=== PATIENT | male | born 1980 | race Caucasian/White ===

== ENCOUNTER 2022-03-28 15:42 | Emergency (ER) | payer MEDICAID ==
[~2022-03-28] VITALS: Ht 185.4 cm; Wt 83.9 kg
--- NOTE | 2022-03-28 16:00 | NUR ---
BIBS C/O NAUSEA, VOMITING AND DIARRHEA, LOST SENSE TASTE/SMELL X 3 DAYS UNABLE TO TOLERATE FOOD/ORAL FLUIDS.
[2022-03-28] MEDS ORDERED: ONDANSETRON HCL/PF 4 MG/2 ML VIAL ONE (17:30)
[2022-03-28] MEDS ORDERED: MORPHINE SULFATE INJ 2 MG/ML DISP.SYRIN IV ONE (17:30)
[2022-03-28] MEDS ORDERED: IV NS 0.9% 1,000 ML BAG IV ONE (17:30)
[2022-03-28] MEDS ORDERED: MORPHINE SULFATE INJ 4 MG/ML DISP.SYRIN ONE (17:30)
[2022-03-28] MEDS ORDERED: ONDANSETRON HCL/PF 4 MG/2 ML VIAL IVP ONE (17:30)
--- NOTE | 2022-03-28 18:16 | NUR ---
PT STILL IN THE BATHROOM, STATES THAT HE'S HAVING DIARRHEA AND STOMACH UPSET
--- NOTE | 2022-03-28 19:06 | NUR ---
WEIGHT GUESSER AT BEDSIDE
[2022-03-28] MEDS ORDERED: KETOROLAC TROMETHAMINE INJ 30 MG/ML VIAL ONE (20:28)
[2022-03-28] MEDS ORDERED: KETOROLAC TROMETHAMINE INJ 30 MG/ML VIAL IV ONE (20:30)
[2022-03-28 20:43] LABS: BASOPHILS % (AUTO) 0.1 % (0.0-2.0); EOSINOPHILS % (AUTO) 0.1 % (0.0-6.0); HEMATOCRIT 48 % (39-51); HEMOGLOBIN 15.8 g/dL (13.5-17.5); LYMPHOCYTES # (AUTO) 1.1 K/uL (0.8-4.8); LYMPHOCYTES % (AUTO) 11.1 % (20.0-44.0); MEAN CORPUSCULAR HGB CONC 33 g/dl (31.0-36.0); MEAN CORPUSCULAR VOLUME 83 fL (80-96); MONOCYTES # (AUTO) 0.8 K/uL (0.1-1.30); MONOCYTES % (AUTO) 8.5 % (2.0-12.0); NEUTROPHILS # (AUTO) 7.6 K/uL (1.8-8.9); NEUTROPHILS % (AUTO) 80.2 % (43.0-81.0); PLATELET COUNT (AUTO) 197 K/uL (150-450); RED BLOOD CELL COUNT(AUTO) 5.77 MIL/uL (4.5-6.0); WHITE BLOOD COUNT (AUTO) 9.5 K/uL (4.3-11.0)
[2022-03-28 20:50] LABS: ALBUMIN 4.4 g/dL (3.4-5.0); BILIRUBIN,DIRECT 0.2 mg/dL (0.0-0.2); BILIRUBIN,TOTAL 1.3 mg/dL (0.2-1.0); CREATININE 1.1 mg/dL (0.6-1.3); POTASSIUM 3.4 mmol/L (3.5-5.1); TOTAL PROTEIN, SERUM 8.1 g/dL (6.4-8.2)
[2022-03-28] MEDS ORDERED: IBUP-1953 PO (21:01)
[2022-03-28] MEDS ORDERED: HYDR-3972 PO (21:01)
[2022-03-28 21:23] VITALS: BP 133/90
--- NOTE | 2022-03-28 21:23 | NUR ---
Patient discharged to home in stable condition. Written and verbal after care instructions given. Patient verbalizes understanding of instruction.
== END 2022-03-28 21:24 | disposition home or self-care (01) ==
LOC: ER 15:47
DX: U07.1 COVID-19 (principal); R19.7 Diarrhea, unspecified; R91.8 Other nonspecific abnormal finding of lung field; F17.210 Nicotine dependence, cigarettes, uncomplicated; R03.0 Elevated blood-pressure reading, without diagnosis of hypertension
CPT/HCPCS: 99285; 74176; 96374; 71045; 96375; 96361; 87426; 85025; 80048; 83690; 80076; 36415; J2270; J1885; J2405; J7030; C9803

== ENCOUNTER 2022-11-04 13:29 | Emergency (ER) | payer MEDICAID ==
[~2022-11-04] VITALS: Ht 185.4 cm; Wt 72.6 kg
[~2022-11-04 13:29] MED LIST: HYDR-3972 PO; IBUP-1953 PO
--- NOTE | 2022-11-04 13:30 | NUR ---
BIBS FOR CONSTIPATION X 3 WEEKS. THIS TYPE OF CONSTIPATION HAS OCCURRED ONLY ONCE BEFORE. A/O X 3, TOLERATING WELL ON ROOM AIR, WILL CONTINUE TO MONITOR.
[2022-11-04] MEDS ORDERED: LINA72CA PO (14:02)
[2022-11-04] MEDS ORDERED: DOCU-141 PO (14:02)
--- NOTE | 2022-11-04 14:18 | NUR ---
Patient discharged to home in stable condition. Written and verbal after care instructions given. Patient verbalizes understanding of instruction.
[2022-11-04 14:19] VITALS: BP 112/47; TEMP 98.1; O2SAT 100
== END 2022-11-04 14:19 | disposition home or self-care (01) ==
LOC: ER 13:34
DX: K59.00 Constipation, unspecified (principal); F17.200 Nicotine dependence, unspecified, uncomplicated; Z60.2 Problems related to living alone; Z79.899 Other long term (current) drug therapy
CPT/HCPCS: 74018

== ENCOUNTER 2023-07-05 20:38 | Emergency (ER) | payer MEDICAID, OTHER ==
[~2023-07-05] VITALS: Ht 185.4 cm; Wt 81.6 kg
[~2023-07-05 20:38] MED LIST changes: +DOCU-141 PO; +LINA72CA PO
[2023-07-05] MEDS ORDERED: KETOROLAC TROMETHAMINE 15 MG/ML VIAL ONE (22:06)
[2023-07-05] MEDS: KETOROLAC TROMETHAMINE 15 MG/ML VIAL IV ONE (22:06)
[2023-07-05] MEDS: IV NS 0.9% 1,000 ML BAG IV ONE (22:06)
[2023-07-05 22:26] LABS: CREATININE 0.8 mg/dL (0.6-1.3); POTASSIUM 3.6 mmol/L (3.5-5.1)
[2023-07-05 22:32] LABS: ALBUMIN 3.8 g/dL (3.4-5.0); BILIRUBIN,DIRECT 0.3 mg/dL (0.0-0.2); BILIRUBIN,TOTAL 1.1 mg/dL (0.2-1.0); TOTAL PROTEIN, SERUM 7.7 g/dL (6.4-8.2)
[2023-07-05 22:33] LABS: BASOPHILS % (AUTO) 0.3 % (0.0-2.0); EOSINOPHILS # (AUTO) 0.2 K/uL (0.0-0.7); EOSINOPHILS % (AUTO) 3.2 % (0.0-6.0); HEMATOCRIT 39 % (39-51); HEMOGLOBIN 13.5 g/dL (13.5-17.5); LYMPHOCYTES # (AUTO) 2.2 K/uL (0.8-4.8); LYMPHOCYTES % (AUTO) 32.3 % (20.0-44.0); MEAN CORPUSCULAR HEMOGLOBIN 27 PG (26.0-33.0); MEAN CORPUSCULAR HGB CONC 34 g/dl (31.0-36.0); MEAN CORPUSCULAR VOLUME 79 fL (80-96); MONOCYTES # (AUTO) 0.5 K/uL (0.1-1.30); MONOCYTES % (AUTO) 7.1 % (2.0-12.0); NEUTROPHILS % (AUTO) 57.1 % (43.0-81.0); PLATELET COUNT (AUTO) 214 K/uL (150-450); RED BLOOD CELL COUNT(AUTO) 4.99 MIL/uL (4.5-6.0); WHITE BLOOD COUNT (AUTO) 6.9 K/uL (4.3-11.0)
[2023-07-05 22:37] LABS: APPEARANCE,URINE CLEAR (CLEAR); BILIRUBIN,URINE 1+ (NEGATIVE); COLOR,URINE YELLOW (YELLOW); KETONES,URINE NEGATIVE (NEGATIVE); LEUKOCYTE ESTERASE ,URINE NEGATIVE (NEGATIVE); NITRITE, URINE NEGATIVE (NEGATIVE); PROTEIN,URINE NEGATIVE (NEGATIVE); UGLUCOSE NEGATIVE (NEGATIVE)
[2023-07-05 22:39] LABS: BLOOD, URINE NEGATIVE Ery/uL (NEGATIVE)
[2023-07-06] MEDS ORDERED: IBUP-1957 PO (00:21)
[2023-07-06] MEDS ORDERED: ACET-2605 PO (00:21)
[2023-07-06 00:32] VITALS: BP 109/69; TEMP 98.9; O2SAT 99
== END 2023-07-06 00:33 | disposition home or self-care (01) ==
LOC: EDUNIT# 20:38 → ER 20:45
DX: R10.9 Unspecified abdominal pain (principal); F17.200 Nicotine dependence, unspecified, uncomplicated; Z79.899 Other long term (current) drug therapy; Z60.2 Problems related to living alone
CPT/HCPCS: 99285; 74176; 96374; 96361; 85025; 80048; 83690; 80076; 81003; 36415; J7030; J1885

== ENCOUNTER 2023-09-12 09:44 | Emergency (ER) | payer OTHER ==
[~2023-09-12] VITALS: Ht 185.4 cm; Wt 81.6 kg
[~2023-09-12 09:44] MED LIST changes: +ACET-2605 PO; +IBUP-1957 PO
[2023-09-12 10:55] LABS: BASOPHILS % (AUTO) 0.3 % (0.0-2.0); EOSINOPHILS # (AUTO) 0.1 K/uL (0.0-0.7); EOSINOPHILS % (AUTO) 1.5 % (0.0-6.0); HEMATOCRIT 40 % (39-51); HEMOGLOBIN 13.4 g/dL (13.5-17.5); LYMPHOCYTES # (AUTO) 0.9 K/uL (0.8-4.8); LYMPHOCYTES % (AUTO) 12.9 % (20.0-44.0); MEAN CORPUSCULAR HEMOGLOBIN 26 PG (26.0-33.0); MEAN CORPUSCULAR HGB CONC 34 g/dl (31.0-36.0); MEAN CORPUSCULAR VOLUME 78 fL (80-96); MONOCYTES # (AUTO) 0.4 K/uL (0.1-1.30); MONOCYTES % (AUTO) 5.9 % (2.0-12.0); NEUTROPHILS # (AUTO) 5.8 K/uL (1.8-8.9); NEUTROPHILS % (AUTO) 79.4 % (43.0-81.0); PLATELET COUNT (AUTO) 191 K/uL (150-450); RED BLOOD CELL COUNT(AUTO) 5.09 MIL/uL (4.5-6.0); RED CELL DISTRIBUTION WIDTH 13.5 % (11.5-15.0); WHITE BLOOD COUNT (AUTO) 7.3 K/uL (4.3-11.0)
[2023-09-12 11:00] LABS: CALCIUM, SERUM 9.2 mg/dL (8.5-10.1); CREATININE 0.8 mg/dL (0.6-1.3); POTASSIUM 4.3 mmol/L (3.5-5.1)
[2023-09-12 11:06] LABS: ALBUMIN 3.8 g/dL (3.4-5.0); BILIRUBIN,DIRECT 0.2 mg/dL (0.0-0.2); BILIRUBIN,TOTAL 1.1 mg/dL (0.2-1.0); TOTAL PROTEIN, SERUM 7.9 g/dL (6.4-8.2)
[2023-09-12] MEDS ORDERED: DICY10CA37 PO (12:06)
[2023-09-12 12:22] VITALS: BP 121/83; TEMP 98; O2SAT 99
[2023-09-12] MEDS ORDERED: HYDROCODONE/APAP 5/325MG TABLET PO ONE (12:30)
[2023-09-12] MEDS ORDERED: DICYCLOMINE HCL 10 MG CAPSULE PO ONE (12:30)
[2023-09-12] MEDS ORDERED: ONDANSETRON HCL 4 MG/5 ML SOLUTION PO ONE (12:30)
== END 2023-09-12 12:24 | disposition home or self-care (01) ==
LOC: ER 10:37
DX: R10.9 Unspecified abdominal pain (principal); K59.00 Constipation, unspecified; F17.200 Nicotine dependence, unspecified, uncomplicated; Z79.899 Other long term (current) drug therapy; Z60.2 Problems related to living alone
CPT/HCPCS: 36415; 80048-TC; 80076-TC; 83690-TC; 85025-TC

== ENCOUNTER 2024-05-15 13:46 | Emergency (ER) | payer OTHER ==
[~2024-05-15] VITALS: Ht 185.4 cm; Wt 77.1 kg
[~2024-05-15 13:46] MED LIST changes: +DICY10CA37 PO
[2024-05-15] MEDS ORDERED: DOXY100C2 PO (15:47)
[2024-05-15] MEDS ORDERED: CEPH-570 PO (15:47)
[2024-05-15 15:57] VITALS: BP 126/75; TEMP 98; O2SAT 99
== END 2024-05-15 15:57 | disposition home or self-care (01) ==
LOC: ER 14:08
DX: L03.114 Cellulitis of left upper limb (principal); F17.210 Nicotine dependence, cigarettes, uncomplicated

== ENCOUNTER 2025-04-01 14:04 | Emergency (ER) | payer OTHER ==
[~2025-04-01] VITALS: Ht 188 cm; Wt 81.6 kg
[~2025-04-01 14:04] MED LIST changes: +CEPH-570 PO; +DOXY100C2 PO
[2025-04-01 14:13] VITALS: TEMP 98
[2025-04-01] MEDS: IV NS 0.9% 1,000 ML BAG IV ONE (15:05)
[2025-04-01] MEDS: CEFEPIME 1 GM in IV D5W 50 ML IV ONE (15:10)
[2025-04-01] MEDS ORDERED: IOHEXOL-300 100 ML VIAL IV ONE (15:11)
[2025-04-01 15:18] LABS: PLATELET COUNT (AUTO) 202 K/uL (150-450); RED BLOOD CELL COUNT(AUTO) 5.57 MIL/uL (4.5-6.0); RED CELL DISTRIBUTION WIDTH 13.3 % (11.5-15.0); WHITE BLOOD COUNT (AUTO) 7.8 K/uL (4.3-11.0)
[2025-04-01 15:26] LABS: CALCIUM, SERUM 9.3 mg/dL (8.5-10.1); CREATININE 0.7 mg/dL (0.6-1.3); SODIUM SERUM 138.0 mmol/L (136-145); UREA NITROGEN, BLOOD 13.0 mg/dL (7-18)
[2025-04-01] MEDS: VANCOMYCIN 1 GM in IV D5W 250 ML IV ONE (15:50)
[2025-04-01] MEDS ORDERED: IBUP-1490 PO (16:59)
[2025-04-01] MEDS ORDERED: AMOX-430 PO (16:59)
[2025-04-01] MEDS ORDERED: TAMS-12 PO (17:00)
[2025-04-01 17:01] LABS: APPEARANCE,URINE CLEAR (CLEAR); BLOOD, URINE NEGATIVE Ery/uL (NEGATIVE); LEUKOCYTE ESTERASE ,URINE NEGATIVE (NEGATIVE); NITRITE, URINE NEGATIVE (NEGATIVE); UGLUCOSE NEGATIVE (NEGATIVE)
[2025-04-01 17:34] VITALS: BP 121/80; O2SAT 99
== END 2025-04-01 17:43 | disposition home or self-care (01) ==
LOC: ER 14:18
DX: L03.221 Cellulitis of neck (principal); F17.210 Nicotine dependence, cigarettes, uncomplicated; Z60.2 Problems related to living alone
CPT/HCPCS: 99285; 96365; 70491; 96367; 85025; 80048; 87040 ×2; 81003; 36415; J3373; J7060; J0692; Q9967